=== PATIENT | female | born 1995 | race Two or more races ===

== ENCOUNTER 2024-01-12 05:22 | Emergency (ER) | payer OTHER ==
[~2024-01-12] VITALS: Ht 157.5 cm; Wt 76.2 kg
[2024-01-12] MEDS ORDERED: INSU100C (05:38)
[2024-01-12] MEDS ORDERED: INSU100V7 SQ (05:38)
[2024-01-12] MEDS ORDERED: ONDANSETRON ODT 4 MG TAB.RAPDIS ONE (05:57)
[2024-01-12] MEDS: ONDANSETRON ODT 4 MG TAB.RAPDIS SL ONE (06:01)
[2024-01-12 07:29] LABS: BASOPHILS # (AUTO) 0.2 K/UL (0.0-0.2); BASOPHILS % (AUTO) 0.9 % (0.0-2.0); EOSINOPHILS % (AUTO) 0.3 % (0.0-7.0); HEMATOCRIT 41.9 % (31.2-41.9); HEMOGLOBIN 14.1 g/dL (10.9-14.3); LYMPHOCYTES # (AUTO) 0.9 K/uL (0.8-4.8); LYMPHOCYTES % (AUTO) 4.5 % (20.5-51.5); MEAN CORPUSCULAR HEMOGLOBIN 30.3 uug (24.7-32.8); MEAN CORPUSCULAR HGB CONC 34 g/dL (32.3-35.6); MEAN CORPUSCULAR VOLUME 89.8 fL (75.5-95.3); MONOCYTES % (AUTO) 5.1 % (0.0-11.0); NEUTROPHILS # (AUTO) 16.9 K/uL (1.8-8.9); NEUTROPHILS % (AUTO) 89.2 % (38.5-71.5); PLATELET COUNT (AUTO) 352 K/uL (179-408); RED BLOOD CELL COUNT(AUTO) 4.66 MIL/uL (3.63-4.92); RED CELL DISTRIBUTION WIDTH 12.9 % (12.3-17.7); WHITE BLOOD COUNT (AUTO) 18.9 K/uL (3.8-11.8)
[2024-01-12 07:37] LABS: DIFFERENTIAL COMMENT 1
[2024-01-12 08:35] VITALS: O2SAT 98
[2024-01-12 08:39] LABS: ETHANOL < 3 MG/DL (0-10)
[2024-01-12 08:46] LABS: CARBON DIOXIDE 27 mmol/L (21-32); CHLORIDE 104 mmol/L (98-107); CREATININE 0.9 mg/dL (0.6-1.3); GLUCOSE 85 mg/dL (74-106); POTASSIUM 4.4 mmol/L (3.5-5.1); SODIUM SERUM 145 mmol/L (136-145); UREA NITROGEN, BLOOD 13 mg/dL (7-18)
[2024-01-12 08:49] LABS: ALANINE AMINOTRANSFERASE 33 U/L (14-59); ALBUMIN 4.3 g/dL (3.4-5.0); ALKALINE PHOSPHATASE 91 U/L (50-136); ASPARTATE AMINOTRANSFERASE 27 U/L (15-37); BILIRUBIN,DIRECT 0.1 mg/dL (0.0-0.2); BILIRUBIN,TOTAL 0.3 mg/dL (0.2-1.0); TOTAL PROTEIN, SERUM 8.5 g/dL (6.4-8.2)
== END 2024-01-12 08:51 | disposition home or self-care (01) ==
LOC: ER 05:25
DX: T40.601A Poisoning by unspecified narcotics, accidental (unintentional), initial encounter (principal); F19.10 Other psychoactive substance abuse, uncomplicated; E11.9 Type 2 diabetes mellitus without complications; Z98.890 Other specified postprocedural states; Z79.899 Other long term (current) drug therapy; Y92.89 Other specified places as the place of occurrence of the external cause
CPT/HCPCS: 36415; 85025; 93005; A4606; A4663; G0480; Q0162

== ENCOUNTER 2024-03-28 04:07 | Emergency (ER) | payer OTHER ==
[~2024-03-28] VITALS: Ht 165.1 cm; Wt 73.5 kg
[~2024-03-28 04:07] MED LIST: INSU100C; INSU100V7 SQ
[2024-03-28] MEDS ORDERED: RISP0.5T65 PO (04:33)
[2024-03-28] MEDS ORDERED: GABA600T12 PO (04:33)
[2024-03-28] MEDS ORDERED: hydrOXYzine HCL 25 MG TABLET ONE (05:13)
[2024-03-28] MEDS ORDERED: GABAPENTIN 300 MG CAPSULE ONE (05:13)
[2024-03-28] MEDS ORDERED: CLONIDINE HCL 0.1 MG TABLET ONE (05:13)
[2024-03-28 05:15] LABS: BASOPHILS # (AUTO) 0.1 K/UL (0.0-0.2); BASOPHILS % (AUTO) 0.8 % (0.0-2.0); EOSINOPHILS # (AUTO) 0.2 K/uL (0.0-0.7); EOSINOPHILS % (AUTO) 2.1 % (0.0-7.0); LYMPHOCYTES # (AUTO) 1.9 K/uL (0.8-4.8); LYMPHOCYTES % (AUTO) 20.5 % (20.5-51.5); MEAN CORPUSCULAR HEMOGLOBIN 30.6 uug (24.7-32.8); MEAN CORPUSCULAR HGB CONC 36 g/dL (32.3-35.6); MEAN CORPUSCULAR VOLUME 85.6 fL (75.5-95.3); MONOCYTES # (AUTO) 0.7 K/uL (0.1-1.30); NEUTROPHILS # (AUTO) 6.6 K/uL (1.8-8.9); NEUTROPHILS % (AUTO) 69.6 % (38.5-71.5); PLATELET COUNT (AUTO) 322 K/uL (179-408); WHITE BLOOD COUNT (AUTO) 9.4 K/uL (3.8-11.8)
[2024-03-28 05:20] LABS: DIFFERENTIAL COMMENT 1
[2024-03-28] MEDS: GABAPENTIN 300 MG CAPSULE PO ONE (05:24)
[2024-03-28] MEDS: CLONIDINE HCL 0.1 MG TABLET PO ONE (05:24)
[2024-03-28] MEDS: hydrOXYzine HCL 25 MG TABLET PO ONE (05:24)
[2024-03-28 05:27] LABS: CARBON DIOXIDE 30 mmol/L (21-32); CHLORIDE 100 mmol/L (98-107); CREATININE 0.7 mg/dL (0.6-1.3); GLUCOSE 105 mg/dL (74-106); POTASSIUM 3.9 mmol/L (3.5-5.1); SODIUM SERUM 139 mmol/L (136-145); UREA NITROGEN, BLOOD 10 mg/dL (7-18)
[2024-03-28] MEDS ORDERED: HYDR-501 PO (06:14)
[2024-03-28 06:21] VITALS: BP 145/98; TEMP 98.6; O2SAT 99
== END 2024-03-28 06:21 | disposition home or self-care (01) ==
LOC: ER 04:17
DX: G62.9 Polyneuropathy, unspecified (principal); R07.89 Other chest pain; F41.9 Anxiety disorder, unspecified; F19.239 Other psychoactive substance dependence with withdrawal, unspecified; R03.0 Elevated blood-pressure reading, without diagnosis of hypertension; E11.9 Type 2 diabetes mellitus without complications; F17.200 Nicotine dependence, unspecified, uncomplicated; Z98.890 Other specified postprocedural states; Z79.899 Other long term (current) drug therapy
CPT/HCPCS: 36415; 71045; 84484; 85025; 93005; A4606; A4663